=== PATIENT | female | born 1935 | race Caucasian/White ===

== ENCOUNTER 2022-01-16 20:28 | Inpatient (IN) | payer MEDICARE, OTHER ==
[~2022-01-16] VITALS: Ht 157.5 cm; Wt 62.6 kg
[2022-01-16 21:14] LABS: HEMOGLOBIN 9.1 gm/dl (12.3-15.3); RED BLOOD COUNT 3.42 M/UL (4.00-5.10); WHITE BLOOD COUNT 9.5 K/UL (4.5-11.0)
[2022-01-17] MEDS ORDERED: LORAZEPAM0.5 MG PO (02:26)
[2022-01-17 04:59] LABS: HEMOGLOBIN 9.2 gm/dl (12.3-15.3); RED BLOOD COUNT 3.47 M/UL (4.00-5.10); WHITE BLOOD COUNT 9.5 K/UL (4.5-11.0)
[2022-01-17] MEDS ORDERED: AMIODARONE HCL200 MG PO (10:21)
[2022-01-17] MEDS ORDERED: ATORVASTATIN CA40 MG PO (10:22)
[2022-01-17] MEDS ORDERED: MEDROXYPROGESTE10 MG PO (10:22)
[2022-01-17] MEDS ORDERED: RANEXA500 MG PO (10:22)
[2022-01-17] MEDS ORDERED: ELIQUIS2.5 MG PO (10:22)
[2022-01-17] MEDS ORDERED: PROAIR HFA8.5 GM INH (10:22)
[2022-01-17] MEDS ORDERED: SYMBICORT 16010.2 GM INH (10:23)
[2022-01-17] MEDS ORDERED: SPIRIVA RESPIMAT4 GM INH (10:23)
[2022-01-17] MEDS ORDERED: LINZESS145 MCG PO (10:23)
[2022-01-17] MEDS ORDERED: PREGABALIN25 MG PO (10:23)
[2022-01-17] MEDS ORDERED: LEVOTHYROXINE25 MCG PO (10:23)
[2022-01-17] MEDS ORDERED: POLY-IRON150 MG PO (10:25)
[2022-01-17] MEDS ORDERED: DRISDOL1250 MCG PO (10:26)
[2022-01-17] MEDS ORDERED: NITROGLYCERIN0.4 MG SL (10:29)
[2022-01-17] MEDS ORDERED: POTASSIUM CHLO10 ME1 PO (10:30)
[2022-01-17] MEDS ORDERED: OMEPRAZOLE40 MG PO (10:30)
[2022-01-17] MEDS ORDERED: LASIX20 MG PO (10:30)
[2022-01-17] MEDS ORDERED: ESTRACE2 MG PO (10:30)
[2022-01-18 06:57] LABS: HEMOGLOBIN 8.4 gm/dl (12.3-15.3); WHITE BLOOD COUNT 9.2 K/UL (4.5-11.0)
[2022-01-18 07:09] LABS: RED BLOOD COUNT 3.1 M/UL (4.00-5.10)
[2022-01-18 07:27] LABS: BUN/CREATININE RATIO 22 (0-10)
[2022-01-19 07:38] LABS: HEMOGLOBIN 9.2 gm/dl (12.3-15.3); WHITE BLOOD COUNT 8.4 K/UL (4.5-11.0)
[2022-01-19 07:42] LABS: RED BLOOD COUNT 3.47 M/UL (4.00-5.10)
[2022-01-19 07:59] LABS: BUN/CREATININE RATIO 16 (0-10)
[2022-01-20 04:36] LABS: HEMOGLOBIN 10.4 gm/dl (12.3-15.3); WHITE BLOOD COUNT 7.6 K/UL (4.5-11.0)
[2022-01-20 04:56] LABS: BUN/CREATININE RATIO 13 (0-10)
[2022-01-20 05:21] LABS: RED BLOOD COUNT 3.84 M/UL (4.00-5.10)
[2022-01-21 03:00] LABS: HEMOGLOBIN 9.2 gm/dl (12.3-15.3); WHITE BLOOD COUNT 7.9 K/UL (4.5-11.0)
[2022-01-21 03:02] LABS: RED BLOOD COUNT 3.39 M/UL (4.00-5.10)
[2022-01-21 03:37] LABS: BUN/CREATININE RATIO 11 (0-10)
[2022-01-23 12:57] LABS: HEMOGLOBIN 9.9 gm/dl (12.3-15.3); RED BLOOD COUNT 3.58 M/UL (4.00-5.10); WHITE BLOOD COUNT 9.1 K/UL (4.5-11.0)
[2022-01-23 13:29] LABS: BUN/CREATININE RATIO 16 (0-10)
[2022-01-24 06:55] LABS: HEMOGLOBIN 8.6 gm/dl (12.3-15.3); WHITE BLOOD COUNT 7.8 K/UL (4.5-11.0)
[2022-01-24 07:00] LABS: RED BLOOD COUNT 3.18 M/UL (4.00-5.10)
[2022-01-24 07:34] LABS: BUN/CREATININE RATIO 15 (0-10)
[2022-01-24] MEDS ORDERED: ACETAMINOPHEN325 MG PO (14:11)
[2022-01-24] MEDS ORDERED: AMOXICILLIN500 MG PO (14:11)
[2022-01-24] MEDS ORDERED: DOCUSATE SODIU100 MG PO (14:11)
[2022-01-24] MEDS ORDERED: ALBUTEROL2.5 MG/3 M NEB (14:11)
[2022-01-24] MEDS ORDERED: POLYETHYLENE GL17 GM PO (14:11)
--- NOTE | 2022-01-24 15:26 | NUR ---
REPORT CALLED TO NOE NURSE AT [facility]. WAITING ON RAPID COVID RESULTS BEFORE CALLING EMS TO TRANSPORT PATIENT.
--- NOTE | 2022-01-24 16:19 | NUR ---
CALLED [facility] TO ARRANGE TRANSPORT FOR PATIENT. FAX MEDICAL NECESSITY FORM ALSO TO [facility].
== END 2022-01-24 20:23 | DRG 189 ==
LOC: ER1 20:28 → MED SURG 4 01-17 00:28 → CDU 01-17 00:28 → MED SURG 4 01-17 01:28 → PROG CARE 01-19 10:10 → MED SURG 4 01-19 10:10 → PROG CARE 01-19 13:42 → MED SURG 4 01-21 14:22
PROVIDERS: Internal Medicine; Physician Assistant; ADMIT Internal Medicine
PROC: B24BZZZ Ultrasonography of Heart with Aorta (ICD-10-PCS; principal; 2022-01-18)
PROC: 5A09357 Assistance with Respiratory Ventilation, Less than 24 Consecutive Hours, Continuous Positive Airway Pressure (ICD-10-PCS; 2022-01-19)
PROC: 5A09357 Assistance with Respiratory Ventilation, Less than 24 Consecutive Hours, Continuous Positive Airway Pressure (ICD-10-PCS; 2022-01-20)
PROC: 5A09357 Assistance with Respiratory Ventilation, Less than 24 Consecutive Hours, Continuous Positive Airway Pressure (ICD-10-PCS; 2022-01-21)
DX: J96.21 Acute and chronic respiratory failure with hypoxia (principal); N39.0 Urinary tract infection, site not specified; G93.49 Other encephalopathy; Z20.822 Contact with and (suspected) exposure to COVID-19; J96.22 Acute and chronic respiratory failure with hypercapnia; K72.90 Hepatic failure, unspecified without coma; B95.2 Enterococcus as the cause of diseases classified elsewhere; R26.9 Unspecified abnormalities of gait and mobility; K21.9 Gastro-esophageal reflux disease without esophagitis; E03.9 Hypothyroidism, unspecified; F41.9 Anxiety disorder, unspecified; K59.00 Constipation, unspecified; E55.9 Vitamin D deficiency, unspecified; J44.9 Chronic obstructive pulmonary disease, unspecified; D64.9 Anemia, unspecified; R13.10 Dysphagia, unspecified; I48.0 Paroxysmal atrial fibrillation; K44.9 Diaphragmatic hernia without obstruction or gangrene; I08.1 Rheumatic disorders of both mitral and tricuspid valves; Z99.81 Dependence on supplemental oxygen; Z79.01 Long term (current) use of anticoagulants; Z90.49 Acquired absence of other specified parts of digestive tract; Z90.710 Acquired absence of both cervix and uterus; Z79.82 Long term (current) use of aspirin
CPT/HCPCS: ECHO; 0240U; 36415; 36600; 71045; 74230; 80053; 80202; 81001; 82550; 82553; 82803; 83540; 83550; 83605; 83735; 83880; 84100; 84439; 84443; 84484; 85025; 85027; 85610; 85730; 86140; 87077; 87086; 87186; 92526; 92610; 92611-GN; 93005; 93306; 94640; 94660; 94664; 94760; 96374; 96375; 96376; 97110-GP-CQ; 97116-GP-CQ; 97162; 97164; 97165; 97168; 97530; 97530-GP-CQ; 99285; G0378; J0696; J2765; J3370; J7070; U0002